=== PATIENT | female | born 1990 | race Caucasian/White ===

== ENCOUNTER 2022-02-19 15:46 | Inpatient (IN) | payer MEDICAID ==
[~2022-02-19] VITALS: Ht 160 cm; Wt 95.0 kg
[2022-02-19] VITALS (20 sets, daily range): BP systolic 117–153; BP diastolic 56–88; PULSE 83–104; TEMP 99.2
[~2022-02-19 15:46] MED LIST: MOTRIN 800800 MG/TAB PO; PERCOCET 325 MG1 TA2 PO
[2022-02-19 16:42] LABS: MEAN CELL VOLUME 84 fl (80.0-100.0); MEAN CORPUSCULAR HGB CONC 32 g/dl (33.0-37.0); MEAN PLATELET VOLUME 9.5 fl (7.4-10.4); PLATELET COUNT 362 K/mm3 (130-400); REDCELL DISTRIBUTION WIDTH-CV 13.2 % (11.5-14.5)
[2022-02-19 16:51] LABS: HEMATOCRIT 26.8 % (37.0-47.0); HEMOGLOBIN 8.6 g/dl (12.5-16.0); MEAN CORPUSCULAR HEMOGLOBIN 27 pg (27-31)
[2022-02-19 17:05] LABS: TRICYCLIC ANTIDEPRESS URINE NEGATIVE
[2022-02-19 17:29] LABS: BAND 4 % (0-10); EOSINOPHIL 4 % (0-4); LYMPHOCYTE 12 % (20.0-51.0); NEUTROPHILS 76 % (42.0-75.2); PLATELET ESTIMATE NORMAL (NORMAL)
[2022-02-19 17:31] LABS: HYPOCHROMIA 1+
[2022-02-19] MEDS ORDERED: PRENATAL TABLET PO (19:21)
[2022-02-19] MEDS ORDERED: FERRO-TIME325 MG PO (19:26)
[2022-02-19] MEDS ORDERED: FERROUSAL325 MG PO (19:27)
--- NOTE | 2022-02-19 22:00 | NUR ---
EFM tracing maternal heart rate. Pt sitting upright in bed, ready for epidural. Lr to bolus. Anesthesia notiifed. LR to bolus rate. 2215 H.Emi [employer]OW[employer] DYER into room for epidural placement. Refer to anesthesia record.
--- NOTE | 2022-02-19 22:15 | NUR ---
EFM tracing Maternal heart r/t pt positioning for epidural.
[2022-02-20] VITALS (36 sets, daily range): BP systolic 99–143; BP diastolic 54–83; PULSE 79–110; TEMP 98.2–100.2
--- NOTE | 2022-02-20 03:19 | NUR ---
FHT's to 90's , SVE 9, Brief return to 120's with SVE, back down to 90's. To WL. ..01. .0000 0 .00 0 0 0 0 0 0 0 0 0 0 0 0 0 0 0 0 0 0
--- NOTE | 2022-02-20 03:40 | NUR ---
FHT's with variable decelerations to 90's with peak of contractions, to then loss of signal. FSE, FHT's 80's, WL. 0344 Pitocin off, O2 @ 8L/mask. Dr Youngblood called to come. To RL . FHT's 110's-120's, to 70's with next contraction, to 110;s120's after contraction.
--- NOTE | 2022-02-20 10:35 | NUR ---
0720-SVE PERFORMED BY Asad MUNOZ RN. PT 100/0. PERICARE COMPLETED. PROVIDER NOTIFIED. FHR IN THE 150S WITH MODERATE VARIABLITY AND VARIABLE DECELERATIONS. 0724-DR. RANDOLPH NOTIFIED VIA TELEPHONE. ORDERS RECEIVED TO BEGIN PUSHING WITH PT. 0726-PT PUSHING WITH CONTRACTIONS. RN CONTINOUSLY AT BEDSIDE MONITORING FHR. PT COPING WELL WITH LABOR AT THIS TIME. CARE PLAN UPDATED.
--- NOTE | 2022-02-20 10:40 | NUR ---
0840-DR. RANDOLPH AT BEDSIDE. PT TOLERATING PUSHING WELL. SVE 10/100/[address] RANDOLPH. FHR IN THE 170S WITH VARIABLE DECELERATIONS AND MODERATE VARIABLILITY. DISCUSSING RISKS AND BENEFITS OF VACUUM DELIVERY OF . PT VERBALIZED UNDERSTANDING AND AGREES. 0854-VACUUM APPLIED TO HEAD BY DR. RANDOLPH. MD APPLIES PRESSURE TO 50MMHG. PT PUSHING WITH CONTRACTION. DR. RANDOLPH APPLYING TRACTION ON HEAD WITH MATERNAL PUSHING EFFORTS. 0858-VACUUM REMOVED BY DR. RANDOLPH. OF HEAD. NUCHAL X1 LOOSE AND REDUCED BY DR. RANDOLPH. 0859- OF BODY. BULB SYRINGE AND TACTILE STIMULATION PERFORMED BY . 0900-CORD CLAMPED BY AND CUT BY FAMILY MEMBER. TAKEN TO WARMER BY NURSERY RN. 0905- OF PLACENTA. PT STABLE AT THIS TIME. VS WNL. CARE PLAN UPDATED.
--- NOTE | 2022-02-20 12:55 | NUR ---
1250-PT EXPRESSED DESIRE TO LEAVE UNIT FOR A SMOKE BREAK. PT STATES "I AM FEELING STRESSED ABOUT MY BABY AND WANT TO TAKE A WALK." PT EDUCATED ON SMOKING CESSATION BY RN AND OFFERED PATCH. PT DECLINES. RN EXRESSED CONCERN ABOUT PT LEAVING THE UNIT AND EDUCATED PT RISKS AFTER VAGINAL DELIVERY. PT VERBALIZED UNDERSTANDING AND STILL WOULD LIKE TO LEAVE UNIT. CHARGE NURSE NOTIFIED.
--- NOTE | 2022-02-20 13:08 | NUR ---
1306-PT AMBULATED OFF UNIT WITH FAMILY MEMBER. PT STABLE AT THIS TIME.
--- NOTE | 2022-02-20 13:33 | NUR ---
1333-PT BACK ON L&D UNIT. PT STABLE AT THIS TIME.
[2022-02-21 00:30] VITALS: BP 130/63; PULSE 78; TEMP 98.3
[2022-02-21 07:30] VITALS: BP 123/74; PULSE 90; TEMP 97.8
--- NOTE | 2022-02-21 10:01 | NUR ---
Initial visit attempt; Patient out of room, Senior Financial Reporting Accountant left card of congratulations and God's blessings for the of their daughter and informations regarding the availablility of Spirit[facility] Care at [facility].
[2022-02-21 17:30] VITALS: BP 135/71; PULSE 84; TEMP 98.1
[2022-02-21 22:05] VITALS: BP 109/64; PULSE 91; TEMP 97.9
[2022-02-22 09:00] VITALS: BP 136/73; PULSE 91; TEMP 97.8
--- NOTE | 2022-02-22 11:00 | NUR ---
Discharge instructions, follow up care and boarder status all reviewed with pt. Pt verbalized an understanding, agreed with the plan and states no questions or concerns at this time.
--- NOTE | 2022-02-25 14:29 | NUR ---
wafer line worker collaborated with Dr Patiño and and Women's unit. Social workers did not receive a referral on patient and her at the time of delivery. O'Kean was transferred to [facility] on 02/23/22. Worker filed a CPS report #[id number], this date, as patient's urine drug screen was positive for cannabinoids and 's cord blood was positive for cannabinoids. Worker faxed lab results to [facility]. Worker contacted ALEXANDRA Denney wafer line worker at [facility] and advised of the above information. Worker conveyed to [facility] a request to call Олег.
--- NOTE | 2022-02-25 15:41 | NUR ---
Олег's ([facility]) number is [phone].
== END 2022-02-22 11:00 | disposition home or self-care (01) | DRG 806 ==
LOC: LDR 15:46 → OB 15:46
PROVIDERS: ADMIT Obstetrics & Gynecology
PROC: 10D07Z6 Extraction of Products of Conception, Vacuum, Via Natural or Artificial Opening (ICD-10-PCS; principal; 2022-02-20)
PROC: 0KQM0ZZ Repair Perineum Muscle, Open Approach (ICD-10-PCS; 2022-02-20)
PROC: 10907ZC Drainage of Amniotic Fluid, Therapeutic from Products of Conception, Via Natural or Artificial Opening (ICD-10-PCS; 2022-02-20)
PROC: 3E033VJ Introduction of Other Hormone into Peripheral Vein, Percutaneous Approach (ICD-10-PCS; 2022-02-20)
DX: O48.0 Post-term pregnancy (principal); O99.324 Drug use complicating childbirth; Z37.0 Single live birth; O99.214 Obesity complicating childbirth; O99.02 Anemia complicating childbirth; D64.9 Anemia, unspecified; O99.344 Other mental disorders complicating childbirth; F41.9 Anxiety disorder, unspecified; F43.10 Post-traumatic stress disorder, unspecified; F32.A Depression, unspecified; O69.81X0 Labor and delivery complicated by cord around neck, without compression, not applicable or unspecified; O70.1 Second degree perineal laceration during delivery; O77.0 Labor and delivery complicated by meconium in amniotic fluid; O75.81 Maternal exhaustion complicating labor and delivery; O76 Abnormality in fetal heart rate and rhythm complicating labor and delivery; F12.10 Cannabis abuse, uncomplicated; Z86.16 Personal history of COVID-19; Z3A.40 40 weeks gestation of pregnancy
CPT/HCPCS: J2405; J2590; J7120